=== PATIENT | female | born 1985 | race Two or more races ===

== ENCOUNTER → 2024-04-20 | Outpatient (CLI) | payer OTHER, SELFPAY ==
--- NOTE | 2024-04-20 15:00 | XR_ITS ---
Examination: Breast ultrasound complete, bilateral Date and time of exam: April 20, 2024 1501 hours INDICATIONS: Right axillary pain beginning several months ago Technique: Real-time grayscale ultrasonographic imaging bilateral breasts, including all 4 quadrants as well as nipple retroareolar and axillary regions. Findings: Sonographic images right breast 1:00 oval mass lobular margins 7 x 7 mm 2:00 oval mass lobular margins 13 x 11 mm Retroareolar oval mass lobular margins 10 x 10 mm Sonographic images left breast Retroareolar cyst 8 x 6 mm No solid nodules IMPRESSION: BI-RADS Category 3: Probably benign findings One additional 6 month right breast sonogram follow-up is needed to document stability of solid nodules described above
== END | disposition home or self-care (01) ==
PROVIDERS: PCP Nurse Practitioner Family; Referring Provider Nurse Practitioner Family; Visit Provider Nurse Practitioner Family
DX: N63.12 Unspecified lump in the right breast, upper inner quadrant (principal); N63.41 Unspecified lump in right breast, subareolar; N60.02 Solitary cyst of left breast
CPT/HCPCS: 76641

== ENCOUNTER 2024-08-14 13:33 | Outpatient (AMB) | payer OTHER, SELFPAY ==
[2024-08-14 13:47] VITALS: BP 131/86; PULSE 64; RESP 12; TEMP 36.6; O2SAT 98; BMI 29.1
--- NOTE | 2024-08-14 13:47 | GYNCLNT_ITS ---
Vital Signs 08/14/24 13:47 Height 1.7 m Height Method Measured Weight 84.482 kg Weight Measurement Method Standing Scale BMI 29.1 BP 131/86 H Blood Pressure Source Automatic Cuff Blood Pressure Location Left Upper Arm Position Sitting Respiration 12 Pulse 64 Pulse Source Monitor Temp 97.8 F Temp Source Oral Pulse Oximetry (%) 98 Oxygen Delivery Method Room Air Allergies/Home Meds Allergies & Medications Allergies nitrofurantoin Allergy (Severe, Verified 08/14/24 13:48) Hives Medication Reconciliation losartan 50 mg tablet 50 mg PO QDAY 08/14/24 [History Confirmed 08/14/24] Intake Visit Data Collection New Patient or Established: New Patient not seen in past 3 years at [facility] (considered New) Reason for Visit:: IRREGULAR MENSES Seen by Clinical Staff ONLY (RN/MA): No Concrete Block Plant Supervisor Required: No Do You Feel Safe at Home: Yes Authorities Contacted: N/A PCP or OBGYN visit in last 3 months: Yes Hx Now: No Are you currently on any form of Control: Yes Last menstrual period: 08/03/24 Pain Present Currently: No Pain Scale Used: Kramer-Larson/Numerical Pain scale:: 0 Smoking Status Smoking Status: Never smoker Compliance Aide history Compliance Aide History Menstrual regularity: irregular Flow: heavy Monthly: Yes How many days does period last: 7 Age at menarche: 13 Currently sexually active: Yes Questionnaires Covid-19 Vaccine Questionnaire Has patient been vacinated for Covid-19 Have you been vacinated for Covid-19: Yes PHQ-9 PHQ-2 Over the last 2 weeks, how often have you been bothered by any of the following problems? 1. Little interest or pleasure in doing things: not at all 2. Feeling down, depressed, or hopeless: not at all Total score: 0 PHQ-9 3. Trouble falling or staying asleep, or sleeping too much: Not at all 4. Feeling tired or having little energy: Not at all 5. Poor appetite or overeating: Not at all 6. Feeling bad about yourself - or that you are a failure or have let yourself or your family down: Not at all 7. Trouble concentrating on things, such as reading the newspaper or watching television: Not at all 8. Moving or speaking so slowly that other people could have noticed? - Or the opposite - being so fidgety or restless that you have been moving around a lot more than usual: not at all 9. Thoughts that you would be better off or of hurting yourself in some way: Not at all Total score: 0 Source: Developed by Drs. Jared Mccann, Meron Leon, Juan A Mcclellan and colleagues, with an educational shalonda from [employer]. Depression screen completed yes Social History Living Situation History Marital Status: Lives With: Family Housing: House Housing Other:: Patient employed as a school psychologist. Has a 15,12 and 4 year old kids Tobacco History Smoking Status: Never smoker Second Hand Smoke Exposure: No Alcohol History Alcohol Intake: Former Alcohol Intake Frequency: holidays/special occasions only Domestic Abuse History Do You Feel Safe at Home: Yes Past Medical History Past Medical History Have you ever been diagnosed with any of the following: Cardiology Problems Hypertension: Yes (on Losartan) Respiratory Problems Asthma: No Stomache/Intestinal Problems Obesity: No Reproductive Problems Endometriosis: No Fibroids: Yes (6 cm intramural fibroid ) Previous Pregnancies: Yes (hx x 3) Musculoskeletal Problems Arthritis: Yes Endocrine Problems Diabetes Mellitus Type 2: No Hypothyroidism: No Blood Problems Anemia: No Psychologic Problems Anxiety: Yes (On Xanax PRN, On Propanolol for palpitations) Other Problems Hospitalization: Yes (for childbirth) Blood Transfusions: No Anesthesia Reactions: No Chicken Pox: Yes History of Present Illness HPI Narrative The patient is a 39 y.o G 5 P3023 who presents reporting heavy cycles. Her spouse has had a vasectomy in the past. She has a hx of a 6 cm fibroid on a report from [facility]. This was a CT scan only from 2019, I have no recent imaging or labs. The patient is on her lunch break. She denies significant pelvic pain. She is here to discuss options for the bleeding. She cannot take OCPs due to HTN and tried a Nexplanon and stated this increased her anxiety. She is unsure if she wants to try an IUD. We discussed an LAVH vs ablation for treatment. Review of Systems Review of Systems Narrative Review of Systems: The patient reports heavy VB, no significant pelvic pain, No urinary or pressure symptoms. Exam Narrative Physical exam: Pt is on her lunch break and declines a pelvic exam today General General Appearance: alert, in no apparent distress, comfortable, cooperative, healthy appearing, well developed and well groomed Neck Neck exam: Present normal inspection, full ROM and trachea midline Chest Chest inspection: Present normal inspection and symmetric chest wall rise Resp Respiratory exam: Present normal lung sounds bilaterally Card Cardiovascular exam: Present regular rate, normal rhythm and normal heart sounds Abdominal Abdominal exam: Present soft and normal bowel sounds Psych Psychiatric exam: Present normal affect and normal mood Skin Skin exam: Present warm, dry, intact and normal color Assessment & Plan Diagnosis / Problem List (1) Menorrhagia, premenopausal: Status: Acute Assessment and Plan: Check labs and pelvic US. Call for FU (2) Intramural uterine fibroid: Status: Acute Office Procedures OB Clinic LOC & Office Proc's Nursing/Assessment Patient Status: Initial/New Patient OB Clinic Nursing Assessment: Medication Reconciliation, Update PMH in EMR and Vital Signs OB Clinic Coordination of Care: Complex Care and Chronic Disease 1-5, Consent,records obtained, informed consent, Education Simp Pt/Fam, Lab and Imaging orders, Results/Orders obtained and Staff clarify orders New Patient Charge New Patient Point Assignment: 1104 New Patient Point Charge: BUILDING GUARD DEPUTY SHERIFF Level 3 ([id number])
== END 2024-08-14 14:14 | disposition home or self-care (01) ==
LOC: HODSOBC 13:33
PROVIDERS: Supervising Provider Obstetrics & Gynecology; Visit Provider Obstetrics & Gynecology
DX: D25.1 Intramural leiomyoma of uterus (principal); N92.4 Excessive bleeding in the premenopausal period
CPT/HCPCS: 99203; G0463

== ENCOUNTER → 2024-10-10 | Outpatient (CLI) | payer OTHER, SELFPAY ==
--- NOTE | 2024-10-10 11:30 | XR_ITS ---
Examination: Pelvic ultrasound, transabdominal, complete Technique: Transabdominal ultrasound of the pelvis performed using grayscale imaging Date and time of exam: October 10, 2024 1148 hours INDICATIONS: Abnormal vaginal bleeding beginning one month ago, CT examination April 18, 2019 hypodense mass posterior aspect of the uterus FINDINGS: Uterus 10.9 cm posterior uterine body mass 8.3 x 6.5 x 8.3 cm Endometrial stripe 0.8 cm Right ovary 2.9 cm arterial flow 19 x 20 mm cyst Left ovary 2.9 cm arterial flow IMPRESSION: Solid mass posterior uterine body 8.3 x 6.5 x 8.3 cm, recommend 6 month follow-up transvaginal pelvic sonography
== END | disposition home or self-care (01) ==
PROVIDERS: PCP Family Medicine; Referring Provider Obstetrics & Gynecology; Visit Provider Obstetrics & Gynecology
DX: N85.8 Other specified noninflammatory disorders of uterus (principal)
CPT/HCPCS: 76856

== ENCOUNTER 2024-11-13 15:05 | Outpatient (AMB) | payer OTHER, SELFPAY ==
--- NOTE | 2024-11-13 15:10 | AMB.GYNCLNOT ---
Allergies/Home Meds Allergies & Medications Allergies nitrofurantoin Allergy (Severe, Verified 11/13/24 15:11) Hives Medication Reconciliation losartan 50 mg tablet 50 mg PO QDAY 08/14/24 [History Confirmed 11/13/24] propranolol 10 mg tablet 10 mg PO BID 11/13/24 [History Confirmed 11/13/24] Intake Visit Data Collection New Patient or Established: Established Patient (seen at [facility] within 3 years) Reason for Visit:: US RESULTS Seen by Clinical Staff ONLY (RN/MA): No Video Production Intern Required: No Do You Feel Safe at Home: Yes Authorities Contacted: N/A PCP or OBGYN visit in last 3 months: No Hx Now: No Are you currently on any form of Control: No Last menstrual period: 10/28/24 Pain Present Currently: No Pain Scale Used: Kramer-Larson/Numerical Pain scale:: 0 Smoking Status Smoking Status: Never smoker For Telemed visit only Telemed Video/Phone Visit: Yes Verbal consent obtained for Telemed visit?: Yes Verbal Consent witness name: RAUL ALARCON Telemed Video/Phone visit w/Clinical Staff: 11-20 min Quantitative Consultant history Quantitative Consultant History Menstrual regularity: irregular Flow: heavy Monthly: Yes How many days does period last: 7 Age at menarche: 14 Currently sexually active: Yes WOODS BOSS: Past Medical History Past Medical History: No Hx Neurological Disorders, No Hx Hypothyroidism, Yes Hx Cardiac Disorders, Yes Hx Hypertension (on Losartan), No Hx Cancer, No Hx Blood Disorders, No Hx Anemia, No Hx Gastrointestinal Disorders, No Hx Renal Disease, No Hx Diabetes Mellitus Type 1 and No Hx Diabetes Mellitus Type 2 Questionnaires Covid-19 Vaccine Questionnaire Has patient been vacinated for Covid-19 Have you been vacinated for Covid-19: Yes PHQ-9 PHQ-2 Over the last 2 weeks, how often have you been bothered by any of the following problems? 1. Little interest or pleasure in doing things: not at all 2. Feeling down, depressed, or hopeless: not at all Total score: 0 PHQ-9 3. Trouble falling or staying asleep, or sleeping too much: Not at all 4. Feeling tired or having little energy: Not at all 5. Poor appetite or overeating: Not at all 6. Feeling bad about yourself - or that you are a failure or have let yourself or your family down: Not at all 7. Trouble concentrating on things, such as reading the newspaper or watching television: Not at all 8. Moving or speaking so slowly that other people could have noticed? - Or the opposite - being so fidgety or restless that you have been moving around a lot more than usual: not at all 9. Thoughts that you would be better off or of hurting yourself in some way: Not at all Total score: 0 If you checked off any problems, how difficult have these problems made it for you to do your work, take care of things at home, or get along with other people?: not difficult at all Source: Developed by Drs. Jared Mccann, Meron Leon, Juan A Mcclellan and colleagues, with an educational shalonda from [employer]. 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 She states that she could be at work and all of a sudden she will feel gushing. 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 She states this is quite inconvenient and embarrassing. No shortness of breath no fevers chills. She had a recent ultrasound revealing the uterus to be 10.9 cm with a posterior fibroid measuring 8.3 x 6.5 x 8.3 cm . The patient is wearing nighttime pads and having heavy bleeding she is very interested in hysterectomy. On the tele-med conference we discussed a hysterectomy and what a robotic hysterectomy. If we are able to get her in for a robotic hysterectomy that she will likely go home the same day and possibly be back at work as soon as 2 weeks. 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 At this point I recommended referral to [place] to see Dr. Kun Mi for robotic hysterectomy. All questions were answered to the patient's satisfaction. Will get her referred to [place]. Office Procedures OB Clinic LOC & Office Proc's Nursing/Assessment Patient Status: Established Patient OB Clinic Nursing Assessment: Medication Reconciliation, Update PMH in EMR and Vital Signs OB Clinic Coordination of Care: Complex Care and Chronic Disease 1-5, Consent,records obtained, informed consent, Education Simp Pt/Fam, Results/Orders obtained and Staff clarify orders Established Patient Charge Established Patient Point Assignment: 90 Telehealth If patient is seen using Teleconference methods, complete New/Est section, but DO NOT kun points only kun the correct Telemed visit type Telemed Phone/Video with patient at home & Dr,PA,LANCE CREWMEMBER: Yes Assessment & Plan Diagnosis / Problem List (1) Intramural uterine fibroid: Status: Acute (2) Menorrhagia, premenopausal: Status: Acute Assessment and Plan: Patient desires a hysterectomy. Will refer out for robotic hist. If not possible to have this performed in [place]. Will possibly scheduled LAVH here with me and a another MD as it is a large fibroid.
== END 2024-11-13 16:13 | disposition home or self-care (01) ==
LOC: HODSOBC 15:05
PROVIDERS: PCP Obstetrics & Gynecology; Referring Provider Obstetrics & Gynecology; Supervising Provider Obstetrics & Gynecology; Visit Provider Obstetrics & Gynecology
DX: D25.1 Intramural leiomyoma of uterus (principal); N92.4 Excessive bleeding in the premenopausal period; Z88.3 Allergy status to other anti-infective agents
CPT/HCPCS: 99212; G0463

== ENCOUNTER → 2025-04-06 | Outpatient (CLI) | payer OTHER, SELFPAY ==
[2025-04-06 09:41] LABS: Collection Type, Urine Clean Catch
[2025-04-06 10:01] LABS: Basophils # (Auto) 0.0 Thou/mm3 (0.0-0.2); Basophils % (Auto) 0 % (0-2.5); Eosinophils # (Auto) 0.1 Thou/mm3 (0.0-0.5); Eosinophils % (Auto) 1 % (0-10); Hematocrit 41.1 % (36.0-46.0); Hemoglobin 13.9 g/dL (12.0-16.0); Immature Granulocytes Auto 0.01 Thou/mm3 (0.00-0.00); Lymphocytes # (Auto) 1.9 Thou/mm3 (1.0-4.8); Lymphocytes % (Auto) 27 % (10-50); Mean Corpuscular HGB Conc 33.8 g/dl (31.0-37.0); Mean Corpuscular Hemoglobin 30.3 pg (25.0-35.0); Mean Corpuscular Volume 90 fL (80-100); Monocytes # (Auto) 0.5 Thou/mm3 (0.0-0.8); Monocytes % (Auto) 7 % (0-12); Neutrophils # (Auto) 4.7 Thou/mm3 (1.8-7.7); Neutrophils % (Auto) 65 % (37-80); Nucleated Red Blood Cell # 0.00 Thou/mm3 (0.00-0.00); Nucleated Red Blood Cell % 0 /100 WBC (0); Platelet Count 314 Thou/mm3 (140-440); RDW Standard Deviation 41.4 fL (36.4-46.3); Red Blood Count 4.59 Miln/mm3 (4.00-5.20); White Blood Count 7.2 Thou/mm3 (3.6-11.0)
[2025-04-06 10:12] LABS: Glucose Estimated Average 117 mg/dL (80-131); Hemoglobin A1C 5.7 % Hgb (4.8-6.0)
[2025-04-06 10:17] LABS: Bacteria,Urine Rare; Bilirubin,Urine Negative (Negative); Blood,Urine Trace (Negative); Clarity,Urine Clear (Clear/Hazy); Color,Urine Yellow (Lt Yel-Yel); Culture Indicated,Urine Not Indicated; Glucose, Urine Negative (Negative); Hyaline Casts,Urine < 1 /hpf (0-1); Ketones,Urine Negative (Negative); Leukocyte Esterase,Urine Negative (Negative); Nitrite,Urine Negative (Negative); PH,Urine 6.5 (5.0-7.0); Protein,Urine 1+ (Neg - Trace); RBC,Urine 8 /hpf (0-3); Specific Gravity,Urine 1.023 (1.001-1.035); Squamous Epithelial Cell,Urine 1 /hpf (0-5); Urobilinogen,Urine Negative mg/dL (0.0-1.0); WBC,Urine 2 /hpf (0-5)
[2025-04-06 10:22] LABS: Alanine Aminotransferase 42 U/L (10-49); Albumin, Serum 4.7 gm/dL (3.5-5.0); Albumin/Globulin Ratio 1.8 (1.2-2.2); Alkaline Phosphatase 72 U/L (46-116); Anion Gap 10 (7-16); Aspartate Amino Transferase 24 U/L (0-34); BUN/Creatinine Ratio 11 Ratio (12-20); Bilirubin,Total 0.5 mg/dL (0.3-1.2); Blood Urea Nitrogen 10 mg/dL (9-23); Calcium 9.3 mg/dL (8.3-10.6); Calcium (Corrected) 9.3 mg/dL (8.5-10.1); Carbon Dioxide 24.3 mMol/L (20.0-31.0); Cardiac Risk Estimate 7.7 RATIO (3.7-5.6); Chloride 107 mMol/L (98-107); Cholesterol 246 mg/dL (132-200); Creatinine (Component) 0.9 mg/dL (0.6-1.3); Globulin 2.6 gm/dL (2.3-3.5); Glucose 103 mg/dL (74-106); HDL Cholesterol 32 mg/dL (40-60); LDL Cholesterol,Calculated 184 mg/dL (0-130); Osmolality,Calculated 280 (275-295); Potassium 4.4 mMol/L (3.4-5.1); Sodium 141 mMol/L (136-145); Thyroid Stimulating Hormone 1.31 uIU/mL (0.55-4.78); Total Protein 7.3 gm/dL (5.7-8.2); Triglycerides 150 mg/dL (30-150); eGFR > 60 See Note
[2025-04-06 10:30] LABS: Creatinine MALB Rnd Ur 248 mg/dL (30-125); Microalbumin Creat Ratio 41 mg/gCrea (<30); Microalbumin, Random Urine 102 mg/L (0-300)
== END | disposition home or self-care (01) ==
PROVIDERS: PCP Family Medicine; Referring Provider Nurse Practitioner Family; Visit Provider Nurse Practitioner Family
DX: B35.1 Tinea unguium (principal); E78.2 Mixed hyperlipidemia; F41.8 Other specified anxiety disorders; I10 Essential (primary) hypertension
CPT/HCPCS: 36415; 80053; 80061; 81001; 82043; 82570; 83036; 84443; 85025